=== PATIENT | male | born 1950 | race Caucasian/White ===

== ENCOUNTER 2020-03-24 08:34 | Outpatient (RCR) | payer MEDICARE, BC, OTHER ==
[~2020-03-24 08:34] MED LIST: ALLEGRA-D 12 HO1 TER PO; ASPIRIN E.C. 8181 MG PO; ASPRIN; BACTRIM DS 8001 TAB PO; FLONASE NASAL S16 GM NS; LEVAQUIN 750MG750 MG PO; NEXIUM40 MG PO; NORCO 325 MG-7.1 TAB PO; PHENERGAN 25 TA25 MG PO; SINGULAIR 110 MG/TAB PO
== END 2020-06-22 | disposition home or self-care (01) ==
LOC: WSST
DX: R13.13 Dysphagia, pharyngeal phase (principal)

== ENCOUNTER → 2020-03-25 | Outpatient (CLI) | payer MEDICARE, BC, OTHER | LOC: COL.RAD 08:08 | DX: R13.10 Dysphagia, unspecified (principal) ==